=== PATIENT | male | born 1960 | race Two or more races ===

== ENCOUNTER 2020-11-07 20:34 | Emergency (ER) | payer OTHER ==
[~2020-11-07] VITALS: Ht 182.9 cm; Wt 89.8 kg
[2020-11-07 20:45] VITALS: BP 135/95
--- NOTE | 2020-11-07 21:11 | NUR ---
PT IS MEDICALLY CLEARED FOR BOOKING AND RELEASED UNDER THE CARE OF [employer] OFFICERS. PT IS IN STABLE CONDITION. HE IS AMBULATORY ON STEADY GAIT.
== END 2020-11-07 21:13 ==
LOC: ER 20:36
DX: R06.02 Shortness of breath (principal); E78.5 Hyperlipidemia, unspecified; Z02.89 Encounter for other administrative examinations